=== PATIENT | female | born 1970 | race Hispanic/Latino ===

== ENCOUNTER 2019-02-25 07:49 | Emergency (ER) | payer MEDICAID ==
[~2019-02-25] VITALS: Ht 165.1 cm; Wt 77.1 kg
[2019-02-25] MEDS ORDERED: LEVOTHYROXINE112 MCG PO (08:04)
[2019-02-25] MEDS ORDERED: PYRIDIUM100 MG PO (08:42)
[2019-02-25] MEDS ORDERED: BACTRIM DS TAB1 EACH PO (08:42)
== END 2019-02-25 08:47 | disposition home or self-care (01) ==
LOC: ED 07:49
DX: N39.0 Urinary tract infection, site not specified (principal); Z79.899 Other long term (current) drug therapy
CPT/HCPCS: 81001; 84703; 87088; 99283